=== PATIENT | female | born 2000 | race Caucasian/White ===

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

== ENCOUNTER 2018-01-14 17:14 | Emergency (ER) | payer OTHER ==
--- NOTE | 2018-01-14 17:23 | PDOC ---
Rapid Medical Evaluation Time Seen by Provider: 01/14/18 17:19 Medical Evaluation: Allergies Allergy/AdvReac Type Severity Reaction Status Date / Time No Known Allergies Allergy Verified 05/16/16 20:16 01/14/18 17:21 have performed a brief in-person evaluation of this patient. The patient presents with a chief complaint of: L thumb injury at work today. Tetanus UTD Pertinent physical exam findings: partial amp of tip of L thumb I have ordered the following:xray The patient will proceed to the ED for further evaluation. Discharge Disposition - Diagnosis Finger laceration Qualifiers: Encounter type: initial encounter Finger: thumb Damage to nail status: without damage Foreign body presence: without foreign body Laterality: left Qualified Code(s): S61.012A - Laceration without foreign body of left thumb without damage to nail, initial encounter - Referrals Referrals: Amber Rowell [Primary Care Provider] - - Patient Instructions - Post Discharge Activity
[2018-01-14 17:54] VITALS: BP 93/61; PULSE 98; TEMP 98; BMI 27.3
--- NOTE | 2018-01-14 18:16 | PDOC ---
History of Present Illness - General Chief Complaint: Laceration Stated Complaint: LT HAND INJURY Time Seen by Provider: 01/14/18 17:19 - History of Present Illness Initial Comments: 17-year-old female with a past medical history significant for asthma presents for evaluation of a laceration on her left thumb. She is current on tetanus, she states she was cutting an onion at work when she accidentally lacerated her left thumb. 01/14/18 18:12 Past History - Past Medical History Allergies/Adverse Reactions: Allergies Allergy/AdvReac Type Severity Reaction Status Date / Time No Known Allergies Allergy Verified 01/14/18 17:22 Home Medications: Ambulatory Orders NK [No Known Home Medication] 01/14/18 Asthma: Yes COPD: No DVT: No - Immunization History Immunization Up to Date: Yes - Suicide/Smoking/Psychosocial Hx Smoking History: Never smoked Have you smoked in the past 12 months: No Number of Cigarettes Smoked Daily: 0 Cigars Per Day: 0 Hx Alcohol Use: No Drug/Substance Use Hx: No Substance Use Type: None Review of Systems - Review of Systems Integumentary: Yes: See HPI All Other Systems: Reviewed and Negative *Physical Exam - Vital Signs Last Vital Signs Temp Pulse Resp BP Pulse Ox 98.0 F 98 H 18 93/61 100 01/14/18 17:21 01/14/18 17:21 01/14/18 17:21 01/14/18 17:21 01/14/18 17:21 - Physical Exam Comments: There is a semicircular laceration at the tip of the left thumb extending radially to ulnarly from the distal portion of the nailbed without nail involvement. There are no gross sensorimotor deficits. The hanging flap of tissue appears to be devitalized at this point 01/14/18 18:13 Medical Decision Making - Medical Decision Making X-rays show no bony involvement, I made the decision to irrigate and reattach the flap in order to restore the tissue if possible 6 mL of 1% lidocaine were used aseptically for digital block on the left thumb this was tolerated well. Copious irrigation with normal saline was used to irrigate the wound the wound was explored there was no foreign body identified. The semicircular flap was closed with 6 interrupted 5-0 nylon simple sutures and one interrupted 5-0 gut suture at the distal aspect of the nail. This was tolerated well a dry sterile dressing was placed 01/14/18 18:13 *DC/Admit/Observation/Transfer Diagnosis at time of Disposition: Finger laceration Qualifiers: Encounter type: initial encounter Finger: thumb Damage to nail status: without damage Foreign body presence: without foreign body Laterality: left Qualified Code(s): S61.012A - Laceration without foreign body of left thumb without damage to nail, initial encounter - Discharge Dispostion Disposition: HOME Condition at time of disposition: Stable Decision to Admit order: No - Referrals Referrals: Amber Rowell [Primary Care Provider] - Ruiz Angulo MD [Staff Physician] - - Patient Instructions Printed Discharge Instructions: DI for Laceration Repair Additional Instructions: Follow-up with hand surgery in 1-2 days for further evaluation and treatment options. Return to the emergency room should he develop any increasing pain redness swelling or drainage from the area of the wound. Keep the dressing that was placed on today for 48 hours and do not get it wet. After 48 hours remove it may remove the dressing and wash her hand with soap and water. Leave it open to air. If you need to work he must wear a glove and cover the wound. Return to the emergency room or continue to follow-up with hand surgery for suture removal. Sutures should be removed in about 10 days no less than 10 days - Post Discharge Activity
== END 2018-01-14 18:33 | disposition home or self-care (01) ==
LOC: JERFT 17:14
PROC: 0HQGXZZ Repair Left Hand Skin, External Approach (ICD-10-PCS; principal; 2018-01-14)
DX: S61.012A Laceration without foreign body of left thumb without damage to nail, initial encounter (principal); W26.0XXA Contact with knife, initial encounter; Y93.G1 Activity, food preparation and clean up; Y92.9 Unspecified place or not applicable; Y99.0 Civilian activity done for income or pay
CPT/HCPCS: 73140-TC-LT-FY; 99281-25